=== PATIENT | female | born 1995 | race Caucasian/White ===

== ENCOUNTER 2017-10-31 09:57 | Emergency (ER) | payer OTHER ==
[2017-10-31 11:06] LABS: Barbiturates NEGATIVE; Benzodiazepines NEGATIVE; Cocaine NEGATIVE; METHAMPHETAM NEGATIVE; Opiates NEGATIVE; Phencyclidine NEGATIVE; THC Cannibis NEGATIVE
[2017-10-31 11:14] LABS: Absolute Lymphocytes (CBC) 2.1 K/uL (0.7-4.9); Absolute Monocytes 0.7 K/uL (0.1-1.3); Absolute Neutrophil 6.7 K/uL (1.8-8.0); Basophils % 0.5 % (0-1.3); Eosinophils % 0.5 % (0-4.4); Hematocrit 40.7 % (36.0-45.0); Lymphocytes % 22.1 % (15.3-44.8); MCH 31.7 pg (27.0-35.0); MCV 95.2 fL (80-100); MPV 7.9 fL (7.6-11.3); Monocytes % 7.4 % (3.3-12.3); RBC Red Blood Cell Count 4.28 M/uL (3.86-4.86)
[2017-10-31 11:26] LABS: Urine Blood 1+ (NEG); Urine Glucose NEGATIVE (NEG); Urine Protein NEGATIVE (NEG); Urine Specific Gravity 1.005 (1.005-1.030)
[2017-10-31 11:29] LABS: Bicarbonate 25 mEq/L (21-31); Glucose Level 88 mg/dL (65-120); Potassium 3.8 mEq/L (3.6-5.0); Protime INR 1.06; Sodium Level 137 mEq/L (135-145)
[2017-10-31 11:35] LABS: ALT/SGPT 15 IU/L (10-60); AST/SGOT 15 IU/L (10-42); Albumin 4.2 g/dL (3.2-5.5); Alkaline Phosphatase 48 IU/L (42-121); BUN Blood Urea Nitrogen 17 mg/dL (6-20); Bilirubin Direct 0.1 mg/dL (0-0.2); Bilirubin Total 0.7 mg/dL (0.3-1.2); Protein, Total 7.6 g/dL (6.0-8.3)
[2017-10-31 11:40] LABS: Alcohol Serum/Plasma < 10 mg/dl; Salicylates Level < 4.0 mg/dl (<30)
--- NOTE | 2017-10-31 12:18 | EKG ---
Test Date: 2017-10-31 Test Time: 10:32:48 Fuel Conversion Technician: KYLE/T MEASUREMENT RESULTS: Intervals: Rate: 64 [place]: 144 QRSD: 92 QT: 408 QTc: 420 [place]: P: 57 [place]: 144 QRS: 69 T: 55 INTERPRETIVE STATEMENTS: Normal sinus rhythm Normal ECG No previous ECG available for comparison Electronically Signed On 10-31-17 12:17:21 CDT by Bandar Gibbons
--- NOTE | 2017-10-31 13:38 | ER ---
Nurse's Notes [facility] Name: Madeleine Larson Age: 22 yrs Sex: Female : 1995 Arrival Date: 10/31/2017 Time: 09:58 Bed 15 Private MD: Diagnosis: Suicidal ideations Presentation: 10/31 10:03 Presenting complaint: Patient states: "I have a history of depression and anxiety and iw over the last few days I've been thinking about suicide and self harm". Pt states "I haven't taken any medications for mental health about 3 years now". Transition of care: patient was not received from another setting of care. Onset of symptoms was September 2017. Initial Sepsis Screen: Does the patient meet any 2 criteria? No. Patient's initial sepsis screen is negative. Does the patient have a suspected source of infection? No. Patient's initial sepsis screen is negative. Care prior to arrival: None. 10:03 Method Of Arrival: Ambulatory iw 10:03 Acuity: RUI 2 iw Historical: - Allergies: 10:05 No Known Allergies; iw - Home Meds: 10:05 None [Active]; iw - PMHx: 10:05 Depression; Anxiety; iw - PSHx: 10:05 None; iw - Immunization history:: Adult Immunizations up to date. - Social history:: Smoking status: Patient/guardian denies using tobacco, Patient/guardian denies using alcohol, street drugs. Screenin:46 Abuse screen: Denies threats or abuse. Denies injuries from another. ph 11:49 Nutritional screening: No deficits noted. Tuberculosis screening: No symptoms or risk ph factors identified. Fall Risk None identified. Assessment: 11:15 General: Appears in no apparent distress. comfortable, slender, well groomed, Behavior ph is calm, cooperative, appropriate for age, Denies fever, feeling ill. Pain: Denies pain. Neuro: Level of Consciousness is awake, alert, obeys commands, Oriented to person, place, time, situation. Cardiovascular: Capillary refill < 3 seconds Patient's skin is warm and dry. Respiratory: Airway is patent Respiratory effort is even, unlabored, Respiratory pattern is regular, symmetrical. GI: No signs and/or symptoms were reported involving the gastrointestinal system. : No signs and/or symptoms were reported regarding the genitourinary system. Derm: Skin is intact, is healthy with good turgor, Skin is pink, warm \\T\\ dry. Musculoskeletal: Circulation, motion, and sensation intact. Range of motion: intact in all extremities. 12:46 Reassessment: Patient appears in no apparent distress at this time. Patient and/or ph family updated on plan of care and expected duration. Pain level reassessed. Patient is alert, oriented x 3, equal unlabored respirations, skin warm/dry/pink. [facility] counselor at bedside to speak with pt, pt calm, cooperative, and speaking openly. 14:24 Reassessment: Patient appears in no apparent distress at this time. Patient and/or ph family updated on plan of care and expected duration. Pain level reassessed. Patient is alert, oriented x 3, equal unlabored respirations, skin warm/dry/pink. Report given to [facility], pt transferred to [facility]. Psych: 11:15 Subjective: Patient's mood is sad, hopeless, Delusions are denied, Hallucinations are ph denied Having thoughts of suicide. Denies suicidal plan. Objective: Patient is cooperative, Speech is normal, Affect is appropriate. Interventions: Removed personal items and placed in bag. Patient placed in hospital gown. Urine collected and sent for urine drug test. Suicide Risk Assessment: Sad Person Scale: Sex of patient: Female: Score 0 points. Age of patient: Score 1 point if patient 15-34. Depression: Score 1 point if signs of depression are present. Previous Attempt: Score 0 point if patient has not previously attempted suicide. Substance Abuse: Score 0 point if patient does not abuse alcohol or drugs. Rational Thinking: Score 0 point if patient has rational thinking. Social Support: Score 1 point if social support is lacking and/or unavailable. Organized Plan: Score 0 if patient did not have an organized plan in place. Relationship: Score 1 point if patient is , , , or for a single male Chronic Sickness: Score 0 point if patient does not have a chronic illness, debilitating, or severe disorder. TOTAL POINTS: If total points are 3-4, proposed clinical action is close follow-up/consider hospitalization. Safety Checks: Personal items have been removed. Door is open. No visitors are present at this time. Pt denies substance abuse. Commitment: Patient will be a voluntary commitment. Vital Signs: 10:05 BP 134 / 97; Pulse 86; Resp 18 S; Temp 98.0(TE); Pulse Ox 96% on R/A; Weight 70.31 kg iw (R); Height 5 ft. 5 in. (165.10 cm) (R); Pain 0/10; 14:00 BP 128 / 81; Pulse 81; Resp 18; Temp 98.0; Pulse Ox 99% on R/A; ph 10:05 Body Mass Index 25.79 (70.31 kg, 165.10 cm) iw ED Course: 09:58 Patient arrived in ED. as 10:04 Triage completed. iw 10:04 Arm band placed on. iw 10:10 Carmen Yang FNP-C is PHCP. kb 10:10 Jalen Hsieh MD is Attending Physician. kb 10:43 Shena Pappas, JEFFREY is Primary Nurse. ph 10:53 EKG done, by semiconductor processing technician. reviewed by Carmen CARMONA. tc 11:47 called and contacted [facility] spoke with Areli. She will notice the eb claims customer service representative personal computer specialist we have a pt that needs evaluation. 11:49 Patient has correct armband on for positive identification. Placed in gown. Bed in low ph position. Call light in reach. Side rails up X 1. Warm blanket given. Verbal reassurance given. 12:17 Initial lab(s) drawn, by me, sent to lab. Urine collected: clean catch specimen, clear. [facility] Inserted saline lock: 22 gauge in right antecubital area, using aseptic technique. Blood collected. 12:45 [facility] Rep Hernandez is here to evaluate the patient. eb 12:47 [facility] staff visited patient. ph 13:11 faxed medical chart by Mary to the following facilities ; [facility], [facility] and [facility]. 13:25 Debbi from [facility] called to speak to the RN caring for eb the patient to get pt history for transfer. 13:28 [facility] called and connected with RN for some patient history for transfer. eb 13:34 [facility] Noemy Falcon called to give administration approval. eb 13:48 Dr Glez from [facility] connected with Carmen Yang ERP CONSULTANT for transfer eb consultation. 14:25 No provider procedures requiring assistance completed. IV discontinued, intact, ph bleeding controlled, No redness/swelling at site. Pressure dressing applied. Administered Medications: No medications were administered Outcome: 13:37 ER care complete, transfer ordered by . reuben 14:25 Patient left the ED. ph 14:25 Transferred by ground EMS Transfer form completed. 14:25 Condition: good 14:25 Instructed on the need for admit. Signatures: Carmen Yang, MANAGER SALES TRAINING-C MANAGER SALES TRAINING-Modesta Lozoya Irene, RN RN Wilma Prado, [facility] Shena Pappas RN RN [place] [id number] Claudia Little Corrections: (The following items were deleted from the chart) 13:15 13:12 faxed medical chart by Mary to the following facilities ; [facility], 13:27 13:25 [facility] called to speak to the RN caring for the eb patient to get pt history for transfer. eb
--- NOTE | 2017-10-31 13:38 | EDPHYS ---
Physician Documentation [facility] Name: Madeleine Larson Age: 22 yrs Sex: Female : 1995 Arrival Date: 10/31/2017 Time: 09:58 Bed 15 Private MD: ED Physician Jalen Hsieh HPI: 10/31 10:27 This 22 yrs old Female presents to ER via Ambulatory with complaints of kb Suicidal Ideation. 10:27 The patient presents to the emergency department with anxiety, over school, over work, kb depression, over school, over work, suicide ideation, but the patient has no formulated plan. Onset: The symptoms/episode began/occurred 3 day(s) ago. Past psychiatric history: Prior diagnosis: depression, anxiety. Associated signs and symptoms: Pertinent positives; anxiety, depression, suicide ideation. Severity of symptoms: At their worst the symptoms were moderate in the emergency department the symptoms are unchanged. The patient has experienced similar episodes in the past. The patient has not recently seen a physician. Pt states she had suffered from anxiety and depression for a long time. States she has a history of self harm and has been having self harm ideations again. 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 The rest of her family is in [place]. States "I just feel so alone and like I'm fighting a losing fischer. I have thought of a lot of way to do self harm, but I don't have an actual plan.". Historical: - Allergies: 10:05 No Known Allergies; iw - Home Meds: 10:05 None [Active]; iw - PMHx: 10:05 Depression; Anxiety; iw - PSHx: 10:05 None; iw - Immunization history:: Adult Immunizations up to date. - Social history:: Smoking status: Patient/guardian denies using tobacco, Patient/guardian denies using alcohol, street drugs. ROS: 10:41 Constitutional: Negative for fever, chills, and weight loss, Cardiovascular: Negative kb for chest pain, palpitations, and edema, Respiratory: Negative for shortness of breath, cough, wheezing, and pleuritic chest pain, Abdomen/GI: Negative for abdominal pain, nausea, vomiting, diarrhea, and constipation, Back: Negative for injury and pain, : Negative for injury, bleeding, discharge, and swelling, MS/Extremity: Negative for injury and deformity, Skin: Negative for injury, rash, and discoloration, Neuro: Negative for headache, weakness, numbness, tingling, and seizure. 10:41 Psych: Positive for anxiety, depression, suicidal ideation, Negative for drug dependence, alcohol dependence, auditory hallucinations, visual hallucinations, homicidal ideation, insomnia, suicide gesture. Exam: 10:41 Constitutional: This is a well developed, well nourished patient who is awake, alert, kb and in no acute distress. Head/Face: Normocephalic, atraumatic. Neck: Trachea midline, no thyromegaly or masses palpated, and no cervical lymphadenopathy. Supple, full range of motion without nuchal rigidity, or vertebral point tenderness. No Meningismus. Chest/axilla: Normal chest wall appearance and motion. Nontender with no deformity. No lesions are appreciated. Cardiovascular: Regular rate and rhythm with a normal S1 and S2. No gallops, murmurs, or rubs. Normal PMI, no JVD. No pulse deficits. Respiratory: Lungs have equal breath sounds bilaterally, clear to auscultation and percussion. No rales, rhonchi or wheezes noted. No increased work of breathing, no retractions or nasal flaring. Abdomen/GI: Soft, non-tender, with normal bowel sounds. No distension or tympany. No guarding or rebound. No evidence of tenderness throughout. Back: No spinal tenderness. No costovertebral tenderness. Full range of motion. Skin: Warm, dry with normal turgor. Normal color with no rashes, no lesions, and no evidence of cellulitis. MS/ Extremity: Pulses equal, no cyanosis. Neurovascular intact. Full, normal range of motion. Neuro: Awake and alert, GCS 15, oriented to person, place, time, and situation. Cranial nerves II-XII grossly intact. Motor strength 5/5 in all extremities. Sensory grossly intact. Cerebellar exam normal. Normal gait. 10:41 Psych: Behavior/mood is cooperative, suicidal, depressed, Affect is flat, Oriented to person, place, time, Patient having thoughts of suicide. Denies suicidal plan. Judgement / Insight is normal. Memory is normal. Delusions/hallucinations are not present. Vital Signs: 10:05 BP 134 / 97; Pulse 86; Resp 18 S; Temp 98.0(TE); Pulse Ox 96% on R/A; Weight 70.31 kg iw (R); Height 5 ft. 5 in. (165.10 cm) (R); Pain 0/10; 14:00 BP 128 / 81; Pulse 81; Resp 18; Temp 98.0; Pulse Ox 99% on R/A; ph 10:05 Body Mass Index 25.79 (70.31 kg, 165.10 cm) iw MDM: 10:10 Patient medically screened. kb 10:41 Data reviewed: vital signs, nurses notes. Data interpreted: Pulse oximetry: on room air kb is 96 %. Interpretation: normal. 11:47 ED course: Pt is medically cleared. [facility] called to have screener come evaluate kb pt.. 13:03 ED course: Pt would like to go for inpatient treatment voluntarily. kb 13:36 Counseling: I had a detailed discussion with the patient and/or guardian regarding: the kb historical points, exam findings, and any diagnostic results supporting the discharge/admit diagnosis, lab results, radiology results, the need to transfer to another facility, [facility] does not immediately have the required specialist. ED course: Pt has been accepted to [facility]. 13:48 ED course: Discussed pt condition with Dr Glez at [facility]. Accepts pt for kb transfer. . 10/31 10:10 Order name: Acetaminophen 10/31 10:10 Order name: Basic Metabolic Panel 10/31 10:10 Order name: CBC with Diff; Complete Time: 11:15 kb 10/31 10:10 Order name: ETOH Level; Complete Time: 11:42 kb 10/31 10:10 Order name: Hepatic Function; Complete Time: 11:42 kb 10/31 10:10 Order name: PT-INR; Complete Time: 11:42 kb 10/31 10:10 Order name: Ptt, Activated; Complete Time: 11:42 kb 10/31 10:10 Order name: Salicylate; Complete Time: 11:42 kb 10/31 10:10 Order name: Urine Drug Screen; Complete Time: 11:06 kb 10/31 10:10 Order name: EKG; Complete Time: 10:11 kb 10/31 10:11 Order name: Acetaminophen Level; Complete Time: 11:42 EDMS 10/31 10:11 Order name: Basic Metabolic Panel; Complete Time: 11:42 EDMS 10/31 10:22 Order name: Test, Serum; Complete Time: 11:31 kb 10/31 10:23 Order name: Urine Dipstick--Ancillary (enter results); Complete Time: 11:31 eb 10/31 10:10 Order name: Urine Test (obtain specimen); Complete Time: 11:50 kb 10/31 10:10 Order name: EKG - Nurse/Tech; Complete Time: 11:50 kb 10/31 10:10 Order name: IV Saline Lock; Complete Time: 11:50 kb 10/31 10:10 Order name: Labs collected and sent; Complete Time: 11:50 kb 10/31 10:10 Order name: Urine Dipstick-Ancillary (obtain specimen); Complete Time: 11:50 kb 10/31 13:12 Order name: Diet Regular; Complete Time: 13:12 iw Administered Medications: No medications were administered Disposition: 10/31/17 13:37 Transfer ordered to Psych Facility. Diagnosis is Suicidal ideations. - Reason for transfer: Higher level of care. - Accepting physician is Claude Glez. - Condition is Stable. - Problem is an acute exacerbation. - Symptoms are unchanged. Addendum: 11/02/2017 10:45 Co-signature as Attending Physician, Jalen Hsieh MD I agree with the assessment and w a plan of care. Signatures: Dispatcher [employer] [facility] Carmen Yang, RN CVICU-C RN CVICU-Ckb Wendy Givens RN RN iw Hall, Patricia, RN RN ph Appiah, William, MD MD wa Corrections: (The following items were deleted from the chart) 10/31 14:25 13:37 10/31/2017 13:37 Transfer ordered to Psych Facility. Diagnosis is Suicidal ph ideations. Reason for transfer: Higher level of care. Accepting physician is Claude Glez. Condition is Stable. Problem is an acute exacerbation. Symptoms are unchanged. kb
== END 2017-10-31 14:25 ==
LOC: ER 09:57
DX: R45.851 Suicidal ideations (principal)
CPT/HCPCS: 36415; 80048; 80076; 80307; 80320; 80329; 81003; 84703; 85025; 85610; 85730; 93005; 99285

== ENCOUNTER 2018-09-14 09:20 | Emergency (ER) | payer OTHER ==
--- NOTE | 2018-09-14 10:20 | ER ---
Nurse's Notes [facility] Name: Madeleine Larson Age: 22 yrs Sex: Female : 1995 Arrival Date: 09/14/2018 Time: 09:27 Bed 25 Private MD: Diagnosis: Diarrhea, unspecified Presentation: 09/14 09:32 Presenting complaint: Diarrhea and abdominal cramping x 5 days. Pt returned from [facility] 4 days ago. Transition of care: patient was not received from another setting of care. Onset of symptoms was September 10, 2018. Risk Assessment: Do you want to hurt yourself or someone else? Patient reports no desire to harm self or others. Care prior to arrival: None. 09:32 Method Of Arrival: Ambulatory hb 09:32 Acuity: RUI 3 hb 10:33 Initial Sepsis Screen: Does the patient meet any 2 criteria? No. Patient's initial aj1 sepsis screen is negative. Does the patient have a suspected source of infection? Yes: Acute abdominal pain. Historical: - Allergies: 09:34 No Known Allergies; hb - Home Meds: 09:34 Zoloft Oral [Active]; Trazodone Oral [Active]; hb - PMHx: 09:34 Anxiety; Depression; hb - PSHx: 09:34 None; hb - Immunization history:: Adult Immunizations up to date. - Social history:: Patient/guardian denies using alcohol, street drugs, The patient lives with family. - Family history:: not pertinent. - Ebola Screening: : No symptoms or risks identified at this time. Screenin:14 Abuse screen: Denies threats or abuse. Denies injuries from another. Nutritional aj1 screening: No deficits noted. Tuberculosis screening: No symptoms or risk factors identified. 10:33 Fall Risk None identified. aj1 Assessment: 10:14 General: Appears in no apparent distress. uncomfortable, Behavior is calm, cooperative, aj1 appropriate for age. Pain: Complains of pain in right lower quadrant and left lower quadrant Pain does not radiate. Pain currently is 8 out of 10 on a pain scale. Neuro: Level of Consciousness is awake, alert, obeys commands, Oriented to person, place, time, situation. Cardiovascular: Patient's skin is warm and dry. Respiratory: Airway is patent Respiratory effort is even, unlabored, Respiratory pattern is regular, symmetrical. GI: Abdomen is flat, non-distended, Abd is soft X 4 quads Abdomen is tender to palpation in right upper quadrant and right lower quadrant Reports diarrhea, Patient currently denies nausea, vomiting. : No signs and/or symptoms were reported regarding the genitourinary system. EENT: No signs and/or symptoms were reported regarding the EENT system. Derm: No signs and/or symptoms reported regarding the dermatologic system. Skin is pink, warm \T\ dry. normal. Musculoskeletal: No signs and/or symptoms reported regarding the musculoskeletal system. Circulation, motion, and sensation intact. Vital Signs: 09:33 BP 119 / 85; Pulse 64; Resp 16; Temp 97.4; Pulse Ox 98% ; Pain 8/10; hb 10:14 BP 106 / 65; Pulse 78; Resp 18; Pulse Ox 98% on R/A; aj1 ED Course: 09:27 Patient arrived in ED. as 09:33 Triage completed. hb 09:34 Arm band placed on. hb 09:59 iMguelina Boucher RN is Primary Nurse. aj1 10:05 Sammie Boucher MD is Attending Physician. ma2 10:14 Patient has correct armband on for positive identification. Bed in low position. Call aj1 light in reach. Side rails up X 1. 10:14 No provider procedures requiring assistance completed. aj1 10:33 Patient did not have IV access during this emergency room visit. aj1 Administered Medications: 10:33 Drug: Flagyl 500 mg Route: PO; aj1 10:33 Follow up: Response: No adverse reaction aj1 Outcome: 10:18 Discharge ordered by . ma2 10:34 Discharged to home ambulatory. aj1 10:34 Condition: good 10:34 Discharge instructions given to patient, Instructed on discharge instructions, follow up and referral plans. no drinking with medication, no driving heavy equipment, medication usage, Demonstrated understanding of instructions, follow-up care, medications, Prescriptions given X 3. 10:34 Patient left the ED. aj1 Signatures: Miguelina Boucher, JEFFREY RN Modesta Duvall Heather, RN RN Sammie Boucher MD MD ma
--- NOTE | 2018-09-14 10:20 | EDPHYS ---
Physician Documentation [facility] Name: Madeleine Larson Age: 22 yrs Sex: Female : 1995 Arrival Date: 09/14/2018 Time: 09:27 Bed 25 Private MD: ED Physician Sammie Boucher HPI: 09/14 10:16 This 22 yrs old Female presents to ER via Ambulatory with complaints of ma2 Diarrhea. 10:16 The patient presents to the emergency department with diarrhea. Onset: The ma2 symptoms/episode began/occurred gradually, 4 day(s) ago. Possible causes: travel. Associated signs and symptoms: Pertinent negatives: abdominal pain, anorexia, belching, diarrhea, fever, GI bleeding. Severity of symptoms: At their worst the symptoms were moderate in the emergency department the symptoms are unchanged. The patient has not experienced similar symptoms in the past. Historical: - Allergies: 09:34 No Known Allergies; hb - Home Meds: 09:34 Zoloft Oral [Active]; Trazodone Oral [Active]; hb - PMHx: 09:34 Anxiety; Depression; hb - PSHx: 09:34 None; hb - Immunization history:: Adult Immunizations up to date. - Social history:: Patient/guardian denies using alcohol, street drugs, The patient lives with family. - Family history:: not pertinent. - Ebola Screening: : No symptoms or risks identified at this time. ROS: 10:16 Constitutional: Negative for fever, chills, and weight loss, Cardiovascular: Negative ma2 for chest pain, palpitations, and edema. 10:16 Abdomen/GI: Positive for diarrhea, Negative for abdominal pain, nausea and vomiting, nausea, vomiting, constipation, abdominal distension, anorexia, black/tarry stool, rectal pain, rectal bleeding, bowel incontinence, flatulence. 10:16 All other systems are negative. Exam: 10:16 Constitutional: This is a well developed, well nourished patient who is awake, alert, ma2 and in no acute distress. Chest/axilla: Normal chest wall appearance and motion. Nontender with no deformity. No lesions are appreciated. Cardiovascular: Regular rate and rhythm with a normal S1 and S2. No gallops, murmurs, or rubs. Normal PMI, no JVD. No pulse deficits. Respiratory: Lungs have equal breath sounds bilaterally, clear to auscultation and percussion. No rales, rhonchi or wheezes noted. No increased work of breathing, no retractions or nasal flaring. Abdomen/GI: Soft, non-tender, with normal bowel sounds. No distension or tympany. No guarding or rebound. No evidence of tenderness throughout. Skin: Warm, dry with normal turgor. Normal color with no rashes, no lesions, and no evidence of cellulitis. MS/ Extremity: Pulses equal, no cyanosis. Neurovascular intact. Full, normal range of motion. Neuro: Awake and alert, GCS 15, oriented to person, place, time, and situation. Cranial nerves II-XII grossly intact. Motor strength 5/5 in all extremities. Sensory grossly intact. Cerebellar exam normal. Normal gait. Vital Signs: 09:33 BP 119 / 85; Pulse 64; Resp 16; Temp 97.4; Pulse Ox 98% ; Pain 8/10; hb 10:14 BP 106 / 65; Pulse 78; Resp 18; Pulse Ox 98% on R/A; aj1 MDM: 10:05 Patient medically screened. ma2 10:16 Differential diagnosis: gastritis, viral gastroenteritis, traveler diarrhea. Data ma2 reviewed: vital signs, nurses notes. Counseling: I had a detailed discussion with the patient and/or guardian regarding: the historical points, exam findings, and any diagnostic results supporting the discharge/admit diagnosis, the presence of at least one elevated blood pressure reading (>120/80) during this emergency department visit, the need for outpatient follow up. Response to treatment: the patient's symptoms have markedly improved after treatment. Administered Medications: 10:33 Drug: Flagyl 500 mg Route: PO; aj1 10:33 Follow up: Response: No adverse reaction aj1 Disposition: 09/14/18 10:18 Discharged to Home. Impression: Diarrhea, unspecified. - Condition is Stable. - Discharge Instructions: Food Choices to Help Relieve Diarrhea, Adult, Diarrhea, Adult. - Prescriptions for Flagyl 500 mg Oral Tablet - take 1 tablet by ORAL route every 12 hours for 7 days; 14 tablet. Tylenol- Codeine #3 300-30 mg Oral Tablet - take 2 tablet by ORAL route every 6 hours As needed; 30 tablet. Zofran 4 mg Oral Tablet - take 1 tablet by ORAL route every 12 hours As needed; 20 tablet. - Medication Reconciliation Form, Thank You Letter, Antibiotic Education, Prescription Opioid Use form. - Follow up: Private Physician; When: Tomorrow; Reason: If symptoms return, Continuance of care. Signatures: Miguelina Boucher RN RN aj1 Mary Ashley RN RN Sammie Boucher MD MD ma2 Corrections: (The following items were deleted from the chart) 10:34 10:18 09/14/2018 10:18 Discharged to Home. Impression: Diarrhea, unspecified. Condition aj1 is Stable. Forms are Medication Reconciliation Form, Thank You Letter, Antibiotic Education, Prescription Opioid Use. Follow up: Private Physician; When: Tomorrow; Reason: If symptoms return, Continuance of care. ma2
[2018-09-14] MEDS ORDERED: metroNIDAZOLE 500 MG TABLET ONE (10:36)
== END 2018-09-14 10:34 | disposition home or self-care (01) ==
LOC: ER 09:20
DX: R19.7 Diarrhea, unspecified (principal); F41.9 Anxiety disorder, unspecified; F32.9 Major depressive disorder, single episode, unspecified
CPT/HCPCS: 99283